=== PATIENT | female | born 1980 | race Caucasian/White ===

== ENCOUNTER 2021-05-12 13:16 | Outpatient (CLI) | payer BC, SELFPAY ==
--- NOTE | ~2021-05-12 | MMUS_ITS ---
EXAMINATION: MM diagnostic laura BI w yasemin, US breast BI complete HISTORY: Breast pain TECHNIQUE: Additional 3-D tomosynthesis images of the breasts were performed and synthetic 2-D images were generated. CAD analysis was submitted and interpreted. High resolution bilateral complete breas t ultrasound was performed. COMPARISON: None BREAST PARENCHYMAL COMPOSITION: The breasts are extremely dense, which lowers the sensitivity of mamm ography FINDINGS: MAMMOGRAPHIC FINDINGS: There are no suspicious masses, calcifications or architectural distortion in either breast to sugges t malignancy. ULTRASOUND: Complete bilateral US of all 4 quadrants of the breasts and retroareolar region was reviewed. Right breast: At 3:00 there is an irregular shaped hypoechoic mass measuring 5 x 5 x 4 mm without sig nificant posterior features or internal vascularity. There are additional simple cyst of the right br east, largest measuring approximately 7 mm. Left breast ultrasound: There are multiple simple cysts of the left breast, largest measuring 11 mm m aximum dimension. IMPRESSION: 1. Irregular shaped hypoechoic mass of the right breast at 3:00 measuring 5 x 5 x 4 mm. 2. Ultrasound-guided right breast biopsy recommended. BI-RADS category 4, suspicious findings. Reviewed, dictated and finalized at location A. RD TABULATING CLERK IMPRESSION: 1. Irregular shaped hypoechoic mass of the right breast at 3:00 measuring 5 x 5 x 4 mm. 2. Ultrasound-guided right breast biopsy recommended. BI-RADS category 4, suspicious findings.
== END 2021-05-12 13:17 | disposition home or self-care (01) ==
LOC: ANHIMG 13:18
PROVIDERS: PCP Family Medicine; Visit Provider Nurse Practitioner Obstetrics & Gynecology
DX: N64.4 Mastodynia (principal); R92.8 Other abnormal and inconclusive findings on diagnostic imaging of breast
CPT/HCPCS: 76641; 77062; 77066; G0279